=== PATIENT | female | born 1955 | race Native Hawaiian/Other Pacific Islander ===

== ENCOUNTER 2017-05-14 10:43 | Outpatient (CLI) | payer BC | END 2017-05-14 21:35 | disposition home or self-care (01) | LOC: MAMMO 10:43 | DX: Z12.31 Encounter for screening mammogram for malignant neoplasm of breast (principal) ==

== ENCOUNTER 2018-05-25 10:38 | Outpatient (CLI) | payer BC | END 2018-05-25 20:31 | disposition home or self-care (01) | LOC: MAMMO 10:38 | DX: Z12.31 Encounter for screening mammogram for malignant neoplasm of breast (principal) ==

== ENCOUNTER 2018-12-05 12:58 | Outpatient (CLI) | payer BC | END 2018-12-05 19:21 | disposition home or self-care (01) | LOC: RAD 12:58 | DX: M25.562 Pain in left knee (principal) ==

== ENCOUNTER 2020-03-05 08:21 | Outpatient (CLI) | payer BC | END 2020-03-05 19:38 | disposition home or self-care (01) | LOC: MAMMO 08:21 | DX: Z12.31 Encounter for screening mammogram for malignant neoplasm of breast (principal) ==

== ENCOUNTER 2021-03-28 11:16 | Outpatient (CLI) | payer OTHER | END 2021-03-28 19:04 | disposition home or self-care (01) | LOC: MAMMO 11:16 | PROVIDERS: ATTEND Specialist | DX: Z12.31 Encounter for screening mammogram for malignant neoplasm of breast (principal) ==

== ENCOUNTER 2022-06-19 08:32 | Outpatient (CLI) | payer OTHER | END 2022-06-19 19:16 | disposition home or self-care (01) | LOC: MAMMO 08:32 | PROVIDERS: ATTEND Specialist | DX: Z12.31 Encounter for screening mammogram for malignant neoplasm of breast (principal) ==